=== PATIENT | male | born 1990 | race Asian ===

== ENCOUNTER 2017-03-19 19:13 | Emergency (ER) | payer OTHER ==
[~2017-03-19] VITALS: Ht 172.7 cm; Wt 65.8 kg
[~2017-03-19 19:13] MED LIST: CIPR500T78 PO; METR500T PO; ONDA-42 SL; ONDA8TAB9 PO
--- NOTE | 2017-03-19 20:13 | ED Upper Extremity ---
General Chief Complaint: Laceration Stated Complaint: RT HAND LACERATION Nursing Triage Note: RIGHT MIDDLE FINGER LACERATION AT APPROX 1900 WHILE USING A FOLDING KNIFE. DID NOT LOCK INTO PLACE AND CAME BACK AND SLICED HIS FINGER. FELT LIGHTHEADED AND DIZZY UPON ARRIVAL TO ER WAITING ROOM, BUT THOSE SYMPTOMS HAVE SINCE SUBSIDED. Nursing Sepsis Screen: No Definite Risk Source: patient Exam Limitations: no limitations History of Present Illness Time seen by provider: 20:11 Initial Comments To ER with a laceration to the dorsal aspect of the right Middle finger. He was cutting something with a pocket knife which did not have the blade locked, and it folded back on him. Tetanus is not up-to-date. Onset: just prior to arrival Severity: mild Pain/Injury Location: right 3rd finger Modifying Factors: Worse With Movement Allergies and Home Medications Allergies Coded Allergies: No Known Drug Allergies (Unverified , 12/04/14) Home Medications No Active Prescriptions or Reported Meds Constitutional: see HPI EENTM: see HPI Respiratory: no symptoms reported Cardiovascular: no symptoms reported Genitourinary: no symptoms reported Musculoskeletal: no symptoms reported Skin: see HPI Past Mugiala-[id number] Hx Patient Social History Alcohol Use: Rarely Uses Recreational Drug Use: No Smoking Status: Former Smoker Type Used: Electronic/Vapor 2nd Hand Smoke Exposure: No Recent Foreign Travel: No Contact w/Someone Who Travel: No Recent Infectious Disease Expo: No Recent Hopitalizations: No Immunizations Up To Date Tetanus Booster (TDap): Unknown Date of Influenza Vaccine: Jun 10, 2014 Seasonal Allergies Seasonal Allergies: No Surgeries HX Surgeries: No Respiratory Hx Respiratory Disorders: No Cardiovascular Hx Cardiac Disorders: No Neurological Hx Neurological Disorders: No Genitourinary Hx Genitourinary Disorders: No Gastrointestinal Hx Gastrointestinal Disorders: No Musculoskeletal Hx Musculoskeletal Disorders: No Endocrine Hx Endocrine Disorders: No HEENT HX ENT Disorders: No Cancer Hx Cancer: No Psychosocial Hx Psychiatric Problems: No Integumentary HX Skin/Integumentary Disorder: No Blood Transfusions Hx Blood Disorders: No Physical Exam Vital Signs Vital Sign - Last 12Hours 03/19/17 19:54 Temp 97.6 Pulse 69 B/P (MAP) 103/67 Pulse Ox 94 O2 Delivery Room Air Capillary Refill : Less Than 3 Seconds General Appearance: WD/WN, no apparent distress HEENT: PERRL/EOMI, normal ENT inspection Neck: non-tender, full range of motion Respiratory: no respiratory distress, no accessory muscle use Gastrointestinal: normal bowel sounds, non tender, soft Shoulder: normal inspection, non-tender Elbow/Forearm: normal inspection, non-tender, Right Hand: Right, laceration (1 cm laceration to the dorsal aspect of the middle phalanx right middle finger. Rather superficial. There is no evidence of injury to the extensor tendon. He can fully flex and extend all fingers. Bleeding is easily controlled. This was closed with glue.) Laceration Repair : Wound Location: Upper Extremities Wound Length (cm): 1 Wound's Depth, Shape: linear Wound Explored: clean Other Closure Supply: Wound Adhesive Progress/Results/Core Measures Results/Orders My Orders Orders - DELMY BLACKMAN APRN Dipht,Pertuss(Acell),Tet Adult (Boostrix (03/19/17 20:15) Vital Signs/I&O Vital Sign - Last 12Hours 03/19/17 19:54 Temp 97.6 Pulse 69 B/P (MAP) 103/67 Pulse Ox 94 O2 Delivery Room Air Blood Pressure Mean: 79 Departure Impression Impression: Primary Impression: Finger laceration Disposition: 01 HOME, SELF-CARE Condition: Stable Departure-Patient Inst. Decision time for Depature: 20:13 Referrals: NO,LOCAL PHYSICIAN (PCP/Family) Primary Care Physician Patient Instructions: Laceration Repair With Glue (DC) Add. Discharge Instructions: 1. Glue to follow off on its own in the next 3-5 days 2. Wear the finger splint for the next 3-5 days 3. Return to ER for any signs of infection such as redness or swelling or pus like drainage All discharge instructions reviewed with patient and/or family. Voiced understanding. Scripts No Active Prescriptions or Reported Meds DELMY BLACKMAN APRN Mar 19, 2017 20:13
[2017-03-19] MEDS ORDERED: TETANUS,DIPTH,PERTUSS P/F (BOOSTRIX) 0.5 ML VIAL IM ONE (20:15)
[2017-03-19 20:22] VITALS: BP 0/0
--- OUTSIDE RECORDS SUMMARY | 2017-03-20 18:18 | XMS REPORT | Continuity of Care Document ---
Author Author [facility] Organization [facility] Address Unknown Phone Unavailable Allergies Active Description Code Type Severity Reaction Onset Reported/Identified Relationship to Patient Clinical Status Yes No Known Drug Allergies [id number] Drug Allergy Unknown N/ A 12/04/2014 Medications Problems Date Dx Coded Attending Type Code Diagnosis Diagnosed By 12/04/2014 DELMY BLACKMAN APRN Ot 787.01 12/04/2014 DELMY BLACKMAN APRN Ot 787.91 10/03/2015 DELMY BLACKMAN APRN Ot K52.9 Procedures Results Encounters ACCT No. Visit Date/Time Discharge Status Pt. Type Provider Facility Loc./Unit Complaint [id number] 10/03/2015 16:56:00 2015 18:11:00 DIS Emergency DELMY BLACKMAN APRN [facility] ER [id number] 12/04/2014 10:27:00 2014 12:14:00 DIS Emergency DELMY BLACKMAN APRN [facility] ER
== END 2017-03-19 20:23 | disposition home or self-care (01) ==
LOC: EDUNIT# 19:13 → ER 19:16
DX: S61.212A Laceration without foreign body of right middle finger without damage to nail, initial encounter (principal); Z87.891 Personal history of nicotine dependence; W26.0XXA Contact with knife, initial encounter
CPT/HCPCS: 12001; 90471; 90715